=== PATIENT | female | born 1995 | race African-American/Black ===

== ENCOUNTER 2021-11-18 13:13 | Emergency (ER) | payer MEDICAID ==
[~2021-11-18] VITALS: Ht 162.6 cm; Wt 90.0 kg
[~2021-11-18 13:13] MED LIST: DIPH-423 PO
[2021-11-18 13:42] VITALS: BP 129/90
== END 2021-11-18 13:54 | disposition home or self-care (01) ==
LOC: ER 13:13
DX: O26.92 Pregnancy related conditions, unspecified, second trimester (principal); Z79.899 Other long term (current) drug therapy; Z3A.27 27 weeks gestation of pregnancy
CPT/HCPCS: 99281

== ENCOUNTER 2022-07-16 11:43 | Emergency (ER) | payer MEDICAID ==
[~2022-07-16] VITALS: Ht 167.6 cm; Wt 75.0 kg
[2022-07-16] MEDS ORDERED: normal saline 1000ML IV soln IVB ONE (12:05)
[2022-07-16] MEDS ORDERED: naloxone 2mg/2ml inj IV ONE (12:05)
[2022-07-16 12:27] LABS: BASOPHILS % (AUTO) 0.6 % (0-1); EOSINOPHILS # (AUTO) 0.1 X10'3 (0-0.9); HEMATOCRIT 33.2 % (35.0-45.0); HEMOGLOBIN 10.2 g/dl (12.0-16.0); LYMPHOCYTES # (AUTO) 3.1 X10'3 (1.1-4.8); LYMPHOCYTES % (AUTO) 45.7 % (21-51); MEAN CORPUSCULAR HEMOGLOBIN 18.4 PG (27.0-31.0); MEAN CORPUSCULAR HGB CONC 30.8 g/dL (33.0-36.5); MEAN CORPUSCULAR VOLUME 59.8 FL (78-98); MEAN PLATELET VOLUME 8.8 FL (7.4-10.4); MONOCYTES # (AUTO) 0.6 X10'3 (0-0.9); MONOCYTES % (AUTO) 8.1 % (2-12); NEUTROPHILS # (AUTO) 3.1 X10'3 (1.8-7.7); NEUTROPHILS % (AUTO) 44.6 % (42-75); PLATELET COUNT 402 X10'3 (140-440); RED BLOOD COUNT 5.55 X10'6 (4.20-5.60); RED CELL DISTRIBUTION WIDTH 16.9 % (11.5-14.5); WHITE BLOOD COUNT 6.9 X10'3 (4.5-11.0)
[2022-07-16 12:32] LABS: ALANINE AMINOTRANSFERASE 24 U/L (12-78); ALBUMIN 3.2 G/DL (3.4-5.0); ALBUMIN/GLOBULIN RATIO 0.9 (1.1-1.5); ALKALINE PHOSPHATASE 72 IU/L (46-116); ANION GAP 8 (8-16); ASPARTATE AMINO TRANSFERASE 21 U/L (10-37); BILIRUBIN,TOTAL 0.4 MG/DL (0.1-1.0); BLOOD UREA NITROGEN 13 MG/DL (7-18); BUN/CREATININE RATIO 14.6 (6.6-38.0); CALCIUM 7.8 MG/DL (8.5-10.1); CHLORIDE 108 MMOL/L (99-107); CREATININE 0.89 MG/DL (0.40-0.90); GLUCOSE 90 MG/DL (70-104); LIPASE 80 U/L (73-393); POTASSIUM 3.3 MMOL/L (3.5-5.1); SODIUM 145 MMOL/L (135-145); TOTAL CARBON DIOXIDE 29.1 MMOL/L (24-32); TOTAL PROTEIN 6.8 G/DL (6.4-8.2); eGFR > 90 ML/MIN
[2022-07-16 12:36] LABS: ETHANOL < 0.010 GM/DL (0.0-0.010)
--- NOTE | 2022-07-16 13:10 | NUR ---
pt more awake and alert, maintaining airway. 1L NS finished.
--- NOTE | 2022-07-16 13:30 | NUR ---
provided pt with jello and crackers, tolerating well.
[2022-07-16 14:00] VITALS: BP 137/99
--- NOTE | 2022-07-16 14:00 | NUR ---
spoke with tiesha Gomez's ride. he will come and get her.
[2022-07-16 15:22] LABS: ANISOCYTOSIS 1+; ELLIPTOCYTES 1+; MICROCYTOSIS 3+; PLATELET ESTIMATE NORMAL
[2022-07-16 15:23] LABS: BURR CELLS FEW; SCHISTOCYTES FEW
[2022-07-16 15:25] LABS: POIKILOCYTOSIS 2+; TARGET CELLS FEW
== END 2022-07-16 14:19 | disposition home or self-care (01) ==
LOC: ER 11:43
DX: T43.621A Poisoning by amphetamines, accidental (unintentional), initial encounter (principal); Z79.899 Other long term (current) drug therapy; Y92.89 Other specified places as the place of occurrence of the external cause
CPT/HCPCS: 36415; 71045; 80053; 80320; 83690; 83735; 85008; 85025; 93005; 96374; 99285; J2310; J7030